=== PATIENT | female | born 1950 | race Caucasian/White ===

== ENCOUNTER 2020-01-25 10:31 | Emergency (ER) | payer MEDICARE, MEDICAID ==
[~2020-01-25] VITALS: Ht 165.1 cm; Wt 100.0 kg
[2020-01-25 10:41] VITALS: Ht 165.1 cm; Wt 100.0 kg
[2020-01-25] MEDS ORDERED: FLUTICASONE PRO16 GM NASAL (11:32)
[2020-01-25] MEDS ORDERED: AUGMENTIN 875-11 TAB PO (11:32)
[2020-01-25 12:09] VITALS: BP 158/105
== END 2020-01-25 12:10 | disposition home or self-care (01) ==
LOC: D.ER 10:31
DX: J01.90 Acute sinusitis, unspecified (principal); E11.9 Type 2 diabetes mellitus without complications; I10 Essential (primary) hypertension; Z99.81 Dependence on supplemental oxygen; J02.9 Acute pharyngitis, unspecified

== ENCOUNTER 2021-02-02 11:21 | Emergency (ER) | payer MEDICARE, MEDICAID ==
[~2021-02-02] VITALS: Ht 165.1 cm; Wt 104.5 kg
[~2021-02-02 11:21] MED LIST: AUGMENTIN 875-11 TAB PO; FLUTICASONE PRO16 GM NASAL
[2021-02-02 11:26] VITALS: BP 103/76; Ht 165.1 cm; Wt 104.5 kg
[2021-02-02 12:11] LABS: BASOPHILS 0.9 % (0-2); EOSINOPHILS 1.4 % (0-7); HEMATOCRIT 43.2 % (36.0-48.0); HEMOGLOBIN 14.6 g/dL (12-16); LYMPHOCYTES 19.8 % (15-50); MCH 29.4 pg (26.0-34.0); MCHC 33.7 g/dL (31.0-37.0); MCV 87.2 fL (80.0-100.0); MEAN PLATELET VOLUME 6.8 fL (7.4-10.4); MONOCYTES 13.4 % (2-11); NEUTROPHILS 64.5 % (40-80); PLATELET COUNT 181 10x3/uL (130-400); RBC 4.96 10x6/uL (4.00-5.40); RDW 14.7 % (11.5-14.5); WBC 5.7 10x3/uL (4.8-10.8)
[2021-02-02 12:28] LABS: ANION GAP 7.7 mmol/L (8-16); CALCIUM 9.8 mg/dL (8.5-10.1); CARBON DIOXIDE 31.3 mmol/L (21.0-32.0); CREATININE - SERUM 0.9 mg/dL (0.6-1.3)
[2021-02-02 12:32] LABS: ALBUMIN 3.8 g/dL (3.4-5.0); BILIRUBIN - TOTAL 0.47 mg/dL (0.2-1.3); PROTEIN - SERUM 7.6 g/dL (6.4-8.2)
[2021-02-02] MEDS ORDERED: CLARITIN 10 MG10 MG PO (12:47)
[2021-02-02] MEDS ORDERED: MUCINEX600 MG PO (12:47)
[2021-02-02] MEDS ORDERED: ALBUTEROL SULF8.5 GM INH (12:47)
[2021-02-02 13:28] LABS: SARS-CoV-2 ANTIGEN NEGATIVE- SARS-COV-2 (NEGATIVE)
[2021-02-02] MEDS ORDERED: TESSALON PERLE100 MG PO (13:36)
== END 2021-02-02 13:55 | disposition home or self-care (01) ==
LOC: D.ER 11:21
PROVIDERS: Family Medicine
DX: J06.9 Acute upper respiratory infection, unspecified (principal); N18.9 Chronic kidney disease, unspecified; E11.65 Type 2 diabetes mellitus with hyperglycemia; I10 Essential (primary) hypertension; J01.90 Acute sinusitis, unspecified